=== PATIENT | female | born 1965 | race Caucasian/White ===

== ENCOUNTER 2020-06-29 07:45 | Emergency (ER) | payer BC, OTHER ==
[2020-06-29] MEDS ORDERED: SODIUM CHLORIDE 0.9% (FLUSH) 10 ML SYG IV PRN (07:58)
[2020-06-29] MEDS ORDERED: LABETALOL INJ 5 MG/ML VIAL IV ONE (07:59)
--- NOTE | 2020-06-29 08:18 | ED.PDOC ---
History of Present Illness - General Chief Complaint: Neuro Symptoms/Deficits Stated Complaint: DECREASED USE OF EXTREMITIES, FEELING WEIRD Time Seen by Provider: 06/29/20 07:58 Source: patient, RN notes reviewed, Vital Signs reviewed, family - Daughter Exam Limitations: no limitations - History of Present Illness Initial Comments: Patient is a 54-year-old white female who presents with her daughter with complaints of lightheadedness, confusion and difficulty speaking momentarily. Patient also complains of a posterior headache that radiates forward. The headache is throbbing/stabbing in nature. Severe intensity. Patient's blood pressure is significant elevated with a systolic blood pressure of over 210. Patient denies history of hypertension. Timing/Duration: 1-3 hours Severity: severe Improving Factors: nothing Worsening Factors: nothing Associated Symptoms: headaches, malaise, weakness Allergies/Adverse Reactions: Allergies Penicillins Adverse Reaction (Verified 06/29/20 08:12) Home Medications: Ambulatory Orders Atorvastatin Calcium [Lipitor] 10 mg PO DAILY 06/29/20 Levothyroxine Sodium [Synthroid] 137 mg PO DAILY 06/29/20 Valsartan-Hydrochlorothiazide [Diovan Hct 160-12.5 mg] 1 tab PO DAILY #30 tab 06/29/20 Review of Systems - Review of Systems Constitutional: States: see HPI, malaise, weakness. Denies: chills, fever EENTM: States: no symptoms reported. Denies: eye pain, blurred vision, double vision Respiratory: States: no symptoms reported. Denies: cough, short of breath, stridor, wheezing Gastrointestinal/Abdominal: States: no symptoms reported. Denies: abdominal pain, nausea, vomiting Genitourinary: States: no symptoms reported. Denies: dysuria, frequency Musculoskeletal: States: no symptoms reported. Denies: back pain, joint pain, neck pain Skin: States: no symptoms reported. Denies: change in color, rash Neurological: States: see HPI, headache, weakness. Denies: numbness, paresthesia, seizure, tingling, tremors Endocrine: States: no symptoms reported. Denies: increased hunger, increased thirst, increased urine Hematologic/Lymphatic: States: no symptoms reported. Denies: blood clots, easy bleeding All other Systems: No Change from Baseline Past Medical History (General) - Patient Medical History Hx Seizures: No Hx of COPD: No Hx Cardiac Disorders: No Hx Congestive Heart Failure: No Hx Pacemaker: No Hx Hypertension: No Hx Thyroid Disease: Yes Hx Diabetes: No Hx Cancer: No Hx Hepatitis C: No Surgical History: Hysterectomy - Vaccination History Hx Tetanus, Diphtheria Vaccination: No Hx Influenza Vaccination: No Hx Pneumococcal Vaccination: No Immunizations Up to Date: No - Social History Hx Tobacco Use: No Hx Alcohol Use: Yes - SOCIALLY Hx Substance Use: No Hx Substance Use Treatment: No Hx Depression: No - Female History Patient is a Female of Child Bearing Age (10 -59 yrs old): No Family Medical History - Family History Father Living Status: Still Living Hx Cardiac Disease: Yes Mother Living Status: Hx Family Cancer: Yes - BREAST Hx Family;Other: ANEURYSM Physical Exam - Physical Exam General Appearance: Alert, Anxious, Obvious distress, Well Developed, Well Groomed, Well Hydrated, Well Nourished Eye Exam: bilateral normal Ears, Nose, Throat: hearing grossly normal, normal ENT inspection, normal pharynx Neck: non-tender, full range of motion, supple, normal inspection Respiratory: chest non-tender, lungs clear, normal breath sounds, no respiratory distress, no accessory muscle use Cardiovascular/Chest: normal peripheral pulses, regular rate, rhythm, no edema, no gallop, no JVD, no murmur Peripheral Pulses: radial,right: 2+, radial,left: 2+ Gastrointestinal/Abdominal: normal bowel sounds, non tender, soft, no organomegaly, no pulsatile mass Back Exam: normal inspection, no CVA tenderness, no vertebral tenderness Extremity: normal range of motion, non-tender, normal inspection 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 06/29/20 11:48 Patient initially here for mild confusion and generalized weakness and noted to have significantly elevated blood pressure of a systolic in the 220s with diastolic in the 1 teens to 120s. Symptoms have resolved after treatment with antihypertensives and Compazine IV and mag sulfate and Toradol. I have talked with her PCP, Dr. Craven, and he agrees with plan of care for treatment of her hypertension with Diovan/hydrochlorothiazide and discharge home with follow-up with him on Friday. I discussed the plan of care with the patient and her mother and they voiced understanding and agreement with the plan of care. Freddy Gomez M.D. #[id number] - Results/Orders Results/Orders: EKG performed 29 June 2020 at 0747 hrs.: Sinus tachycardia at 105 bpm, possible anterior infarct, age indeterminate, poor R wave progression, abnormal EKG. No comparison EKG available at this time. CT HEad W/O CONTRAST. PROVIDED CLINICAL HISTORY/REASON FOR EXAM: Confusion TECHNIQUE: Volumetric CT data of the brain was obtained without intravenous contrast. This exam was performed according to our departmental dose-optimization program, which includes automated exposure control, adjustment of the mA and/or kV according to patient size and/or use of iterative reconstruction technique. COMPARISON: None available. FINDINGS: The ventricles and sulci are normal, without hydrocephalus or significant atrophy. Septum pellucidum and third ventricle are midline. Focal area of diminished attenuation in the parafalcine left parietal lobe measuring approximately 0.8 x 0.6 cm. No acute hemorrhage is present. No mass or mass effect is present. The calvaria and soft tissues are unremarkable. Right maxillary sinus disease. IMPRESSION: 1. Focal area of diminished attenuation in the parafalcine left parietal lobe measuring 0.8 cm, which may reflect an acute infarction, however an underlying mass lesion is not excluded. Recommend MRI brain with contrast for further evaluation. There is no associated hemorrhage or mass effect. 2. Right maxillary sinus disease. Findings discussed with the ordering physician at 8:31 AM today 2019. Electronically signed by: Rob Steinberg MD 06/29/2020 8:31 AM CDT EXAM DESCRIPTION: MR Brain w/wo Contrast CLINICAL HISTORY: 54 years Female, Acute confusion. COMPARISON: None. TECHNIQUE: Precontrast multiplanar multisequence imaging of the brain followed by postcontrast multiplanar gadolinium-enhanced imaging. FINDINGS: Small normal ventricular system and intact corpus callosum noted. Focal gliosis or encephalomalacia is not apparent. No evidence of restricted diffusion to suggest acute or subacute ischemia. Gradient echo imaging demonstrates no evidence of susceptibility artifact to suggest prior intracranial hemorrhage. No significant white matter disease or atrophy evident. Postcontrast imaging demonstrates normal meningeal and vascular enhancement. Tumor mass or metastatic disease or primary [employer] neoplasm not apparent. No vasogenic edema or midline shift or subdural fluid collection seen. IMPRESSION: Normal MRI of the brain without and with contrast enhancement. Incidental note of minimal right maxillary mucosal thickening and small retention cyst or polyp in the right maxillary antrum. Electronically signed by: Jose Lowe MD 06/29/2020 9:56 AM 06/29/20 07:58 IV Care:Saline Lock per Protoc QSHIFT Telemetry .ONCE Sodium Chloride 0.9% (Flush) [Saline Flush Syringe] 10 ml IV PRN PRN 06/29/20 08:00 EKG STAT 06/29/20 08:35 Hold Metformin x 48Hrs [id number] Laboratory Results - last 24 hr 06/29/20 06/29/20 06/29/20 07:50 07:50 07:50 WBC 6.6 RBC 5.23 Hgb 15.4 Hct 44.1 MCV 84.4 MCH 29.4 MCHC 34.8 RDW 13.2 Plt Count 219 MPV 8.0 Absolute Neuts (auto) 3.90 Absolute Lymphs (auto) 2.00 Absolute Monos (auto) 0.50 Absolute Eos (auto) 0.20 Absolute Basos (auto) 0.10 Neutrophils % 59.1 Lymphocytes % 30.1 Monocytes % 7.5 Eosinophils % 2.4 Basophils % 0.9 PT 9.4 INR < 1.00 PTT (SP) 22.0 Sodium 141 Potassium 3.6 Chloride 103 Carbon Dioxide 26 Anion Gap 15.6 BUN 13 Creatinine 0.69 BUN/Creatinine Ratio 18.8 POC Glucose Random Glucose 124 H Serum Osmolality 282.8 Calcium 9.5 Total Bilirubin 0.7 AST 27 ALT 36 Alkaline Phosphatase 73 Creatine Kinase 67 CK-MB (CK-2) 1.0 CK-MB (CK-2) % Not Reportable Troponin I < 0.02 Serum Total Protein 8.2 Albumin 4.8 Globulin 3.4 Albumin/Globulin Ratio 1.4 06/29/20 08:08 WBC RBC Hgb Hct MCV MCH MCHC RDW Plt Count MPV Absolute Neuts (auto) Absolute Lymphs (auto) Absolute Monos (auto) Absolute Eos (auto) Absolute Basos (auto) Neutrophils % Lymphocytes % Monocytes % Eosinophils % Basophils % PT INR PTT (SP) Sodium Potassium Chloride Carbon Dioxide Anion Gap BUN Creatinine BUN/Creatinine Ratio POC Glucose 117 H Random Glucose Serum Osmolality Calcium Total Bilirubin AST ALT Alkaline Phosphatase Creatine Kinase CK-MB (CK-2) CK-MB (CK-2) % Troponin I Serum Total Protein Albumin Globulin Albumin/Globulin Ratio Vital Signs 06/29/20 06/29/20 06/29/20 08:05 08:14 08:21 Temperature 97.2 F L Pulse Rate [ 104 H 100 H 96 H MONITOR] Respiratory 18 18 Rate Blood Pressure 216/119 173/119 [RA] O2 Sat by Pulse 98 98 Oximetry 06/29/20 06/29/20 10:00 10:37 Temperature Pulse Rate [ 92 H 90 MONITOR] Respiratory 18 18 Rate Blood Pressure 204/106 180/129 [RA] O2 Sat by Pulse 96 96 Oximetry Departure - Departure Clinical Impression: Hypertensive encephalopathy Time of Disposition: 12:00 Disposition: Discharge to Home or Self Care Condition: Good Departure Forms: ED Discharge - Pt. Copy, Patient Portal Self Enrollment Instructions: Malignant Hypertension (DC) Diet: resume usual diet, other - Low salt diet Activity: increase activity as tolerated Referrals: WING CRAVEN [Primary Care Provider] - 1-5 Days Prescriptions: Valsartan-Hydrochlorothiazide [Diovan Hct 160-12.5 mg] 1 tab PO DAILY #30 tab Home Medications: Ambulatory Orders Atorvastatin Calcium [Lipitor] 10 mg PO DAILY 06/29/20 Levothyroxine Sodium [Synthroid] 137 mg PO DAILY 06/29/20 Valsartan-Hydrochlorothiazide [Diovan Hct 160-12.5 mg] 1 tab PO DAILY #30 tab
[2020-06-29] MEDS ORDERED: PROCHLORPERAZINE INJ 10 MG/2 ML VIAL IV ONE (08:28)
[2020-06-29] MEDS ORDERED: MAGNESIUM SULFATE INJ 1 GM in SODIUM CHLORIDE 0.9% 100ML 100 ML IVPB ONE (08:28)
[2020-06-29] MEDS ORDERED: KETOROLAC TROMETHAMINE INJ 30 MG/ML VIAL IV ONE (08:28)
--- NOTE | 2020-06-29 08:29 | RAD ---
EXAM DESCRIPTION: Chest,1 View CLINICAL HISTORY: 54 years Female, Confusion COMPARISON: None. TECHNIQUE: AP portable chest. FINDINGS: Heart size is normal with normal pulmonary vascularity. No consolidating infiltrate. No pulmonary mass or worrisome nodule. No pneumothorax or pleural effusion. Bones are unremarkable. IMPRESSION: No acute process is identified in the chest. Electronically signed by: Kodak Talavera MD 06/29/2020 8:27 AM CDT
--- NOTE | 2020-06-29 08:33 | CT ---
PROVIDED CLINICAL HISTORY/REASON FOR EXAM: Confusion TECHNIQUE: Volumetric CT data of the brain was obtained without intravenous contrast. This exam was performed according to our departmental dose-optimization program, which includes automated exposure control, adjustment of the mA and/or kV according to patient size and/or use of iterative reconstruction technique. COMPARISON: None available. FINDINGS: The ventricles and sulci are normal, without hydrocephalus or significant atrophy. Septum pellucidum and third ventricle are midline. Focal area of diminished attenuation in the parafalcine left parietal lobe measuring approximately 0.8 x 0.6 cm. No acute hemorrhage is present. No mass or mass effect is present. The calvaria and soft tissues are unremarkable. Right maxillary sinus disease. IMPRESSION: 1. Focal area of diminished attenuation in the parafalcine left parietal lobe measuring 0.8 cm, which may reflect an acute infarction, however an underlying mass lesion is not excluded. Recommend MRI brain with contrast for further evaluation. There is no associated hemorrhage or mass effect. 2. Right maxillary sinus disease. Findings discussed with the ordering physician at 8:31 AM today 2019. Electronically signed by: Rob Steinberg MD 06/29/2020 8:31 AM CDT
--- NOTE | 2020-06-29 09:58 | MRI ---
EXAM DESCRIPTION: Brain w/wo Contrast CLINICAL HISTORY: 54 years Female, Acute confusion. COMPARISON: None. TECHNIQUE: Precontrast multiplanar multisequence imaging of the brain followed by postcontrast multiplanar gadolinium-enhanced imaging. FINDINGS: Small normal ventricular system and intact corpus callosum noted. Focal gliosis or encephalomalacia is not apparent. No evidence of restricted diffusion to suggest acute or subacute ischemia. Gradient echo imaging demonstrates no evidence of susceptibility artifact to suggest prior intracranial hemorrhage. No significant white matter disease or atrophy evident. Postcontrast imaging demonstrates normal meningeal and vascular enhancement. Tumor mass or metastatic disease or primary [employer] neoplasm not apparent. No vasogenic edema or midline shift or subdural fluid collection seen. IMPRESSION: Normal MRI of the brain without and with contrast enhancement. Incidental note of minimal right maxillary mucosal thickening and small retention cyst or polyp in the right maxillary antrum. Electronically signed by: Jose Lowe MD 06/29/2020 9:56 AM CDT
[2020-06-29 12:36] VITALS: BP 173/104; TEMP 97.6; O2SAT 98
== END 2020-06-29 12:36 | disposition home or self-care (01) ==
LOC: ER 07:45
DX: I67.4 Hypertensive encephalopathy (principal); R00.0 Tachycardia, unspecified; R51.9 Headache, unspecified; E07.9 Disorder of thyroid, unspecified; Z79.899 Other long term (current) drug therapy; Z88.0 Allergy status to penicillin
CPT/HCPCS: 36415; 36416; 70450; 70553; 71045; 80053; 82550; 82553; 82948; 84484; 85025; 85610; 85730; 93005; A4216; J0780; J1885; J3475; J7050

== ENCOUNTER → 2020-08-01 | Outpatient (CLI) | payer BC ==
--- NOTE | 2020-08-02 10:56 | US ---
EXAM DESCRIPTION: Carotid Duplex: ULTRASOUND. CLINICAL HISTORY: 54 years Female TIA COMPARISON: Doppler ultrasound of the renal arteries on the same visit. TECHNIQUE: Transcutaneous scanning utilizing garcia-scale and Doppler modes to evaluate the bilateral carotid systems and vertebral arteries. Percentage of diameter of stenosis or no stenosis recorded will be based upon NASCET criteria. FINDINGS: Peak systolic/end diastolic velocities (CM-Sec) CCA Right 69/21 Left 103/23. ICA Right proximal 54/25, distal 69/27. Left proximal 51/14, Distal 60/22. Vertebral Right 61/22 Left 52/19. ECA (PS Only) Right 89 left 78. ICA/CCA peak systolic velocity ratio: Right 1.0 Left 0.6 ICA/CCA end diastolic velocity ratio: Right 1.3 Left 1.0 Vertebral arteries: antegrade flow. Comments: Bilateral atherosclerotic calcification. Less than 20% diameter/area stenosis in the right ICA bulb. Less than 45% diameter/area stenosis in the left CCA bulb. No significant spectral broadening. IMPRESSION: 1. Doppler evaluation of the bilateral carotid systems and vertebral arteries shows no hemodynamically significant stenoses (less than 70%). 2. No significant amount of plaque in the carotid arteries bilaterally. Bilateral vertebral arteries showed antegrade-cephalad flow. Electronically signed by: Sotero Lopez MD 08/02/2020 10:55 AM BEEF PLUCK TRIMMER
--- NOTE | 2020-08-02 11:26 | US ---
EXAM DESCRIPTION: Renal Arteries: Ultrasound. CLINICAL HISTORY: HTN COMPARISON: Two-dimensional ultrasound evaluation of the bilateral kidneys on the same visit. TECHNIQUE: Transcutaneous scanning: Grayscale mode. Doppler peak systolic and end-diastolic velocities/measurements of the abdominal aorta, renal arteries, intra renal arteries, and renal veins. FINDINGS: Kidneys were not evaluated by grayscale technique. Aorta diameter (cm): Mid: 1.1 cm. PSV (cm/sec): Aorta: 99. Right renal artery: 141 Left renal artery: 128 EDV (cm/sec): Right renal artery: 25 Left renal artery: 33 Renal veins: Unremarkable. IVC: Negative. Intrarenal RI's: Proximal segmental Right: 0.73 Left: 0.64. Minimal segmental Right: 0.58 Left: 0.61. Distal segmental Right: 0.67 Left: 0.67 Renal Aortic Ratio: Right RAR = RRA PSV/Aortic PSV = 141 /99= 1.4. Left RAR = LRA PSV/Aortic PSV = 128/99 = 1.3. End Diastolic Ratio: Right EDR = RRA EDV/RRA PSV = 25/141 = 0.18. Left EDR = LRA EDV/LRA PSV = 33/128= 0.36. Other: None. IMPRESSION: 1. Doppler evaluation of the abdominal aorta and bilateral renal arteries and segmental arteries showing no renal artery stenosis bilaterally. 2. Measurement of resistive indices of the segmental arteries and in diastolic ratios bilaterally indicates early renovascular parenchymal disease right kidney. Electronically signed by: Sotero Lopez MD 08/02/2020 11:24 AM TRANSITIONAL NURSE
== END ==
LOC: US 07:50
PROVIDERS: ATTEND Emergency Medicine
DX: I10 Essential (primary) hypertension (principal); G45.9 Transient cerebral ischemic attack, unspecified; I77.9 Disorder of arteries and arterioles, unspecified